=== PATIENT | male | born 1995 | race African-American/Black ===

== ENCOUNTER 2016-09-05 09:42 | Emergency (ER) | payer OTHER ==
[2016-09-05 09:59] LABS: INFLUENZA A NEG (NEG); INFLUENZA B NEG (NEG)
== END 2016-09-05 11:04 | disposition home or self-care (01) ==
LOC: CED 09:42
PROVIDERS: Physician Assistant
DX: J06.9 Acute upper respiratory infection, unspecified (principal); F32.9 Major depressive disorder, single episode, unspecified; Z87.891 Personal history of nicotine dependence; Z91.013 Allergy to seafood
CPT/HCPCS: 87651; 87804; 99283